=== PATIENT | male | born 1985 | race Caucasian/White ===

== ENCOUNTER 2017-02-26 12:32 | Outpatient (CLI) | payer MEDICAID ==
[2017-03-02 21:28] LABS: MEASLES (RUBEOLA) AB IGG >300.00 AU/mL (())
== END 2017-02-26 12:33 | disposition home or self-care (01) ==
LOC: LAB.N 12:32
PROVIDERS: ATTEND Family Medicine
DX: Z01.84 Encounter for antibody response examination (principal)
CPT/HCPCS: 36415; 86735; 86762; 86765

== ENCOUNTER 2017-02-27 16:25 | Emergency (ER) | payer MEDICAID ==
[2017-02-27 16:35] VITALS: BP 125/82
[2017-02-27] MEDS ORDERED: SULFAMETH/TRIMETH DS 800/160 MG TABLET PO STA (16:53)
--- NOTE | 2017-02-27 16:55 | ED Physician Documentation ---
PD HPI SKIN - Stated complaint Stated Complaint: BUMP ON ARMPIT - Chief complaint Chief Complaint: Wound - History obtained from History obtained from: Patient - History of Present Illness Timing - onset: Other (Had a left axillary abscess a few weeks ago at [facility]. No known history of MRSA. 2- 3 day history of increasingly painful abscess in the right axilla although declines pain medication. No fevers.) Review of Systems Constitutional: denies: Fever, Chills Throat: denies: Dental pain / toothache, Sore throat Cardiac: denies: Chest pain / pressure, Palpitations PD PAST MEDICAL HISTORY - Past Medical History Cardiovascular: None Respiratory: None Neuro: None Endocrine/Autoimmune: None GI: None : None HEENT: None Psych: None Derm: None - Past Surgical History Past Surgical History: Yes General: Other Ortho: Arthroscopic surgery HEENT: Tonsil/Adenoidectomy - Present Medications Home Medications: Ambulatory Orders Medication Instructions Recorded Confirmed Sulfamethoxazole/Trimethoprim 1 each PO BID 7 Days 02/27/17 [Sulfamethoxazole-Tmp Ds Tablet] - Allergies Allergies/Adverse Reactions: Allergies Allergy/AdvReac Type Severity Reaction Status Date / Time No Known Drug Allergies Allergy Verified 04/09/16 20:02 - Social History Does the pt smoke?: Yes Smoking Status: Current every day smoker Does the pt drink ETOH?: No Does the pt have substance abuse?: No - Immunizations Immunizations are current?: Yes - POLST Patient has POLST: No PD ED PE NORMAL - Vitals Vital signs reviewed: Yes - General General: Alert and oriented X 3, No acute distress - Derm Derm: Other (2 cm deep but pointed abcess right axilla) - Neuro Neuro: Alert and oriented X 3, Normal speech - Psych Psych: Normal mood, Normal affect Results - Vitals Vitals: Vital Signs - 24 hr 02/27/17 16:34 Temperature 36.7 C Heart Rate 54 L Respiratory 16 Rate Blood Pressure 125/82 H O2 Saturation 97 Oxygen O2 Source Room air Procedures - Abscess I&D (location) right axilla Preparation: Alcohol, Lidocaine 1% Incision: Incised with scalpel, Purulent drainage, Packed, Culture obtained Other: Pt tolerated well, Dressing applied Departure - Departure Disposition: 01 Home, Self Care Clinical Impression: Abscess Condition: Good Record reviewed to determine appropriate education?: Yes Instructions: ED Abscess IandD Prescriptions: Sulfamethoxazole/Trimethoprim [Sulfamethoxazole-Tmp Ds Tablet] 1 each PO BID 7 Days Comments: Return or see your physician in 2 days for packing removal and recheck. As we discussed we will culture your wound, this results should be done in 48- 72 hours. If an antibiotic change is necessary we will call you. Return if worse in the meantime, especially if you develop increased pain or fevers or cannot keep down the medication. Your blood pressure was elevated today on check in to the emergency department. This does not mean that you have hypertension, it is a common phenomenon to check into the emergency department and have elevated blood pressure. I recommend that you see your primary care physician within the week to have it rechecked when you're feeling better.
[2017-02-27] MEDS ORDERED: SULFAMETH/TRIMETH DS 800/160 MG TABLET PO ONE (16:58)
== END 2017-02-27 17:03 | disposition home or self-care (01) ==
LOC: ED 16:25
DX: L02.412 Cutaneous abscess of left axilla (principal); R03.0 Elevated blood-pressure reading, without diagnosis of hypertension; F17.200 Nicotine dependence, unspecified, uncomplicated
CPT/HCPCS: 10060; 87070; 87077; 87181; 87205; 99283; A9270

== ENCOUNTER 2017-09-11 15:45 | Emergency (ER) | payer MEDICAID ==
[2017-09-11] MEDS ORDERED: SODIUM CHLORIDE 0.9% 1,000 ML IV ONE ×2 (16:04)
[2017-09-11] MEDS ORDERED: ONDANSETRON 4 MG/2 ML VIAL IVP STA (16:14)
--- NOTE | 2017-09-11 16:17 | ED Physician Documentation ---
History of Present Illness - Stated complaint Stated Complaint: VOMITING SINCE - Chief complaint Chief Complaint: Abd Pain - History obtained from History obtained from: Patient - History of Present Illness Timing: How many days ago (3) Pain level max: 0 Pain level now: 0 Improved by: nothing Worsened by: nothing - Additonal information Additional information: Patient is a 32-year-old gentleman who presents to the emergency department with vomiting since Wednesday. This is been intermittent, mainly worse at night. Is nauseated throughout the day and has decreased appetite. Has not had any abdominal pain. No diarrhea or constipation. He does use marijuana daily. He states that he has been smoking marijuana daily for approximately 20 years. No headaches. No focal neurological deficits. No fevers. No recent travel. No recent antibiotics. States he does not use alcohol. He used to drink alcohol. States recently has noticed small streaks of blood in the vomit. Review of Systems Ten Systems: 10 systems reviewed and negative Constitutional: denies: Fever, Chills Nose: denies: Rhinorrhea / runny nose, Congestion Throat: denies: Sore throat Respiratory: denies: Cough GI: reports: Vomiting, Hematemesis. denies: Abdominal Pain, Diarrhea, Bloody / black stool : denies: Dysuria Skin: denies: Rash Musculoskeletal: denies: Neck pain, Back pain Neurologic: denies: Headache PD PAST MEDICAL HISTORY - Past Medical History Cardiovascular: None Respiratory: None Neuro: None Endocrine/Autoimmune: None GI: None : None HEENT: None Psych: None Derm: None - Past Surgical History Past Surgical History: Yes General: Other Ortho: Arthroscopic surgery HEENT: Tonsil/Adenoidectomy - Present Medications Home Medications: Ambulatory Orders Medication Instructions Recorded Confirmed Metoclopramide [Reglan] 10 mg PO Q6H PRN #10 tablet 09/11/17 Omeprazole [PriLOSEC] 20 mg PO DAILY #14 capsule 09/11/17 Ondansetron Odt [Zofran] 4 mg TL Q6H PRN #10 tablet 09/11/17 - Allergies Allergies/Adverse Reactions: Allergies Allergy/AdvReac Type Severity Reaction Status Date / Time No Known Drug Allergies Allergy Verified 09/11/17 15:56 - Social History Does the pt smoke?: Yes Smoking Status: Current every day smoker Does the pt drink ETOH?: No Does the pt have substance abuse?: No - Immunizations Immunizations are current?: Yes - POLST Patient has POLST: No PD ED PE NORMAL - Vitals Vital signs reviewed: Yes - General General: Alert and oriented X 3, No acute distress - HEENT HEENT: Moist mucous membranes - Neck Neck: Supple, no meningeal sign - Cardiac Cardiac: RRR, Strong equal pulses - Respiratory Respiratory: No respiratory distress, Clear bilaterally - Abdomen Abdomen: Soft, Non tender, Non distended - Rectal Rectal: Pt declined - Derm Derm: Warm and dry - Neuro Neuro: Alert and oriented X 3 - Psych Psych: Normal mood, Normal affect Results - Vitals Vitals: Vital Signs - 24 hr 09/11/17 09/11/17 15:52 18:22 Temperature 36.7 C Heart Rate 91 74 Respiratory 16 15 Rate Blood Pressure 127/77 133/65 H O2 Saturation 97 98 Oxygen O2 Source Room air - Labs Labs: Laboratory Tests 09/11/17 09/11/17 09/11/17 16:40 16:40 16:40 WBC 10.5 RBC 4.93 Hgb 14.4 Hct 41.9 L MCV 85.1 MCH 29.3 MCHC 34.4 RDW 13.6 Plt Count 238 MPV 7.6 Neut # 6.1 Lymph # 3.6 H [place] # 0.7 Eos # 0.1 Baso # 0.0 Absolute Nucleated RBC 0.00 Nucleated RBC % 0.0 PT INR APTT Sodium 138 Potassium 3.6 Chloride 101 Carbon Dioxide 27 Anion Gap 10.0 BUN 12 Creatinine 1.0 Estimated GFR (MDRD) 86 L Glucose 89 Calcium 9.4 Total Bilirubin 0.5 AST 17 ALT 24 Alkaline Phosphatase 48 Total Protein 7.3 Albumin 4.4 Globulin 2.9 Albumin/Globulin Ratio 1.5 Lipase 17 L Blood Type O POSITIVE Antibody Screen NEGATIVE 09/11/17 16:40 WBC RBC Hgb Hct MCV MCH MCHC RDW Plt Count MPV Neut # Lymph # [place] # Eos # Baso # Absolute Nucleated RBC Nucleated RBC % PT 13.2 H INR 1.2 APTT 32.0 Sodium Potassium Chloride Carbon Dioxide Anion Gap BUN Creatinine Estimated GFR (MDRD) Glucose Calcium Total Bilirubin AST ALT Alkaline Phosphatase Total Protein Albumin Globulin Albumin/Globulin Ratio Lipase Blood Type Antibody Screen PD MEDICAL DECISION MAKING - ED course Complexity details: reviewed results, re-evaluated patient, considered differential, d/w patient ED course: Patient is a 32-year-old gentleman who presents to the emergency department vomiting for the past few days. Does not have any significant pain. Unclear etiology. He also states that he feels like his food does not always digest fully and empty out of his stomach. Possible gastroparesis? Will trial him on Zofran and Reglan and follow-up closely with his doctor for further evaluation and care. Tolerating p.o. without difficulty here. Patient counseled regarding signs and symptoms for which I believe and urgent re-evaluation would be necessary. Patient with good understanding of and agreement to plan and is comfortable going home at this time This document was made in part using voice recognition software. While efforts are made to proofread this document, sound alike and grammatical errors may occur. Departure - Departure Disposition: 01 Home, Self Care Clinical Impression: Vomiting Qualifiers: Vomiting type: unspecified Vomiting Intractability: non-intractable Nausea presence: with nausea Qualified Code(s): R11.2 - Nausea with vomiting, unspecified Condition: Stable Instructions: ED Nausea Vomiting Follow-Up: your,doctor in 1 week [Other] Prescriptions: Metoclopramide [Reglan] 10 mg PO Q6H PRN #10 tablet PRN Reason: Nausea / Vomiting Omeprazole [PriLOSEC] 20 mg PO DAILY #14 capsule Ondansetron Odt [Zofran] 4 mg TL Q6H PRN #10 tablet PRN Reason: Nausea / Vomiting Comments: The cause of your symptoms is unclear today. Return if you worsen. You should follow-up with your doctor for a possible endoscopy and possible gastric emptying study. You may have gastroparesis or may be developing ulcers. Discharge Date/Time: 09/11/17 18:22
[2017-09-11 17:09] LABS: BASOPHILS % (AUTO) 0.3 %; EOSINOPHILS # (AUTO) 0.1 10^3/uL (0.0-0.7); EOSINOPHILS % (AUTO) 0.5 %; HCT - HEMATOCRIT 41.9 % (42.0-52.0); HGB - HEMOGLOBIN 14.4 g/dL (14.0-18.0); LYMPHOCYTES # (AUTO) 3.6 10^3/uL (1.5-3.5); LYMPHOCYTES % (AUTO) 34.4 %; MEAN CORPUSCULAR HEMOGLOBIN 29.3 pg (27.0-31.0); MEAN CORPUSCULAR HGB CONC 34.4 g/dL (32.0-36.0); MEAN CORPUSCULAR VOLUME 85.1 fL (80.0-94.0); MEAN PLATELET VOLUME 7.6 fL (7.4-11.4); MONOCYTES # (AUTO) 0.7 10^3/uL (0.0-1.0); NEUTROPHILS # (AUTO) 6.1 10^3/uL (1.5-6.6); NEUTROPHILS % (AUTO) 57.8 %; RED BLOOD COUNT 4.93 10^6/uL (4.70-6.10); RED CELL DISTRIBUTION WIDTH 13.6 % (12.0-15.0); UNCORRECTED WHITE BLOOD COUNT 10.5 x10^3/uL; WHITE BLOOD COUNT 10.5 x10^3/uL (4.8-10.8)
[2017-09-11 17:19] LABS: INR 1.2 (0.8-1.2); PT - PROTHROMBIN TIME 13.2 secs (9.9-12.6)
[2017-09-11 17:25] LABS: ALBUMIN/GLOBULIN RATIO 1.5 (1.0-2.2); BILIRUBIN,TOTAL 0.5 mg/dL (0.2-1.0); CALCIUM 9.4 mg/dL (8.5-10.3); POTASSIUM 3.6 mmol/L (3.5-5.0); TOTAL PROTEIN 7.3 g/dL (6.7-8.2)
[2017-09-11 18:24] VITALS: BP 133/65
== END 2017-09-11 18:22 | disposition home or self-care (01) ==
LOC: ED 15:45
DX: R11.2 Nausea with vomiting, unspecified (principal); F17.200 Nicotine dependence, unspecified, uncomplicated
CPT/HCPCS: 36415; 80053; 83690; 85025; 85610; 85730; 86850; 86900; 86901; 96361; 96374; 99283

== ENCOUNTER 2019-02-21 08:45 | Emergency (ER) | payer SELFPAY ==
[2019-02-21] MEDS ORDERED: CHERRY SYRUP 10 ML UDC PO ONE (10:10)
[2019-02-21] MEDS ORDERED: DEXAMETHASONE 10 MG/ML VIAL PO STA (10:10)
--- NOTE | 2019-02-21 10:19 | XRAY Report ---
Reason: R shoulder pain Procedure Date: 02/21/2019 Accession Number: [id number] / [id number] Procedure: XR - Shoulder 3 View RT CPT Code: FULL RESULT: EXAM: RIGHT SHOULDER RADIOGRAPHY EXAM DATE: 02/21/2019 10:00 AM. CLINICAL HISTORY: R shoulder pain. COMPARISON: None. TECHNIQUE: 3 views. FINDINGS: Bones: No fracture or bone lesion. Joints: The glenohumeral and acromioclavicular joints are anatomically aligned. Minor acromioclavicular joint degenerative change. Soft tissues: The included hemithorax is unremarkable. No soft tissue swelling. IMPRESSION: Minor right shoulder degenerative change without superimposed acute findings. RADIA
--- NOTE | 2019-02-21 10:20 | ED Physician Documentation ---
PD HPI UPPER EXT INJURY - Stated complaint Stated Complaint: RT SHLDR PX - Chief complaint Chief Complaint: Ext Problem - History obtained from History obtained from: Patient - History of Present Illness Location: Right, Shoulder Type of injury: Other (over use) Where injury occurred: Home Timing - onset: How many days ago (2) Timing - duration: Days (2) Timing - details: Abrupt onset, Still present Improved by: Rest, Immobilization Worsened by: Moving, Palpating Associated symptoms: No: Weakness, Numbness, Tingling, Swelling Contributing factors: No: Anticoagulated Similar symptoms before: No diagnosis Recently seen: Not recently seen - Additonal information Additional information: 33-year-old male with a remote injury to his right shoulder was helping his mother move over the weekend and he has developed increased pain in his right shoulder and with any movement he is having pain. Review of Systems Constitutional: denies: Fever, Chills Eyes: denies: Decreased vision Ears: denies: Ear pain Nose: denies: Rhinorrhea / runny nose, Congestion Throat: denies: Sore throat Cardiac: denies: Chest pain / pressure Respiratory: denies: Dyspnea, Cough GI: denies: Vomiting : denies: Dysuria PD PAST MEDICAL HISTORY - Past Medical History Cardiovascular: None Respiratory: None Endocrine/Autoimmune: None GI: None : None HEENT: None Psych: None Derm: None - Past Surgical History Past Surgical History: Yes General: Other Ortho: Arthroscopic surgery HEENT: Tonsil/Adenoidectomy - Present Medications Home Medications: Ambulatory Orders Medication Instructions Recorded Confirmed Hydrocodone/Acetaminophen 1 - 2 each PO Q6H PRN #14 tablet 02/21/19 [Hydrocodon-Acetaminophen 5-325] - Allergies Allergies/Adverse Reactions: Allergies Allergy/AdvReac Type Severity Reaction Status Date / Time No Known Drug Allergies Allergy Verified 02/21/19 08:54 - Social History Does the pt smoke?: Yes Smoking Status: Current every day smoker Does the pt drink ETOH?: No Does the pt have substance abuse?: No - Immunizations Immunizations are current?: Yes - POLST Patient has POLST: No PD ED PE NORMAL - Vitals Vital signs reviewed: Yes (hypertensive ) - General General: Alert and oriented X 3, No acute distress, Well developed/nourished - HEENT HEENT: Atraumatic, PERRL, EOMI - Neck Neck: Supple, no meningeal sign, No bony TTP - Respiratory Respiratory: No respiratory distress - Back Back: No CVA TTP, No spinal TTP - Derm Derm: Normal color, Warm and dry, No rash - Extremities Extremities: No deformity, No edema, Other (no significant tenderness to the shoulder he is able to hold the shoulder in abduction and a full ROM is able with pain. distal n/v is intact. ) - Neuro Neuro: Alert and oriented X 3, can doffer 2-12 intact, No motor deficit, No sensory deficit, Normal speech Eye Opening: Spontaneous Motor: Obeys Commands Verbal: Oriented GCS Score: 15 - Psych Psych: Normal mood, Normal affect Results - Vitals Vitals: Vital Signs - 24 hr 02/21/19 08:51 Temperature 36.6 C Heart Rate 83 Respiratory 20 Rate Blood Pressure 127/89 H O2 Saturation 98 Oxygen O2 Source Room air - Rads (name of study) shoulder Radiology: Prelim report reviewed (Impression: Minor right shoulder degenerative change without superimposed acute findings.), EMP read indepedently, See rad report PD MEDICAL DECISION MAKING - ED course Complexity details: considered differential, d/w patient ED course: 33-year-old male with what sounds like acute bursitis is administered dexamethasone 10 mg orally we will place him into a sling. Departure - Departure Disposition: 01 Home, Self Care Clinical Impression: Bursitis Qualifiers: Bursitis location: shoulder Laterality: right Qualified Code(s): M75.51 - Bursitis of right shoulder Condition: Stable Instructions: ED Bursitis Follow-Up: [facility] [Provider Group] Prescriptions: Hydrocodone/Acetaminophen [Hydrocodon-Acetaminophen 5-325] 1 - 2 each PO Q6H PRN #14 tablet PRN Reason: pain Forms: Activity restrictions
[2019-02-21 10:49] VITALS: BP 135/88
== END 2019-02-21 10:49 | disposition home or self-care (01) ==
LOC: ED 08:45
DX: M75.51 Bursitis of right shoulder (principal); F17.200 Nicotine dependence, unspecified, uncomplicated
CPT/HCPCS: 99283

== ENCOUNTER 2021-12-23 06:00 | Outpatient (CLI) | payer OTHER ==
--- NOTE | 2021-12-23 10:08 | XRAY Report ---
PROCEDURE: Knee 3 View RT INDICATIONS: RIGHT KNEE PAIN TECHNIQUE: 3 views of the right knee(s) were acquired. COMPARISON: None. FINDINGS: Bones: No fractures or dislocations. No suspicious bony lesions. Mild tricompartmental periarticul ar osteophyte formation. Soft tissues: No joint effusion. No suspicious soft tissue calcifications. IMPRESSION: Osteoarthritis. No acute fracture. No osseous lesion. If symptoms and/or clinical suspic ion for pathology continue, further assessment with repeat plain films, or advanced imaging (e.g., CT , MRI, or bone scan) is recommended for further assessment. Reviewed by: Slime Stevenson MD on 12/23/2021 10:07 AM PDT Approved by: Slime Stevenson MD on 12/23/2021 10:07 AM PDT Station ID: [id number]
== END 2021-12-23 23:59 | disposition home or self-care (01) ==
LOC: DI.WOS 06:00
PROVIDERS: ATTEND Physician Assistant
DX: M17.11 Unilateral primary osteoarthritis, right knee (principal)

== ENCOUNTER 2024-02-27 11:47 | Emergency (ER) | payer OTHER ==
--- NOTE | 2024-02-27 12:47 | ED Physician Documentation ---
PD HPI HEENT - Stated complaint Stated Complaint: BOTH EARS-PX,RED - Chief complaint Chief Complaint: Heent - History obtained from History obtained from: Patient - History of Present Illness Timing - onset: How many weeks ago (1-2 weeks of fullness and less hearing in ears, tried to remove wax but minimal out. Got ear janitor cleaner from store that has small camera, and he noted redness of the left ear in particular.) Timing - duration: Days (having the ear pain in paritcular has just been increaseing few days.) Timing - details: Gradual onset, Still present Location: Right ear, Left ear Associated symptoms: Congestion. No: Fever, Facial swelling, Headache, Cough Similar symptoms before: Diagnosis (has just been was buildup in the past. Not the pain like currently.) Review of Systems Constitutional: denies: Fever, Chills Ears: reports: Loss of hearing (decreased both ears.), Ear pain (mostly left ear) Nose: reports: Rhinorrhea / runny nose Throat: denies: Sore throat Respiratory: denies: Cough PD PAST MEDICAL HISTORY - Past Medical History Past Medical History: Yes Cardiovascular: None Respiratory: None Neuro: None Endocrine/Autoimmune: None GI: None : None HEENT: None Psych: None Musculoskeletal: Chronic back pain Derm: None - Past Surgical History Past Surgical History: Yes General: Other Ortho: Arthroscopic surgery HEENT: Tonsil/Adenoidectomy - Present Medications Home Medications: Ambulatory Orders Medication Instructions Recorded Confirmed Amoxicillin 500 mg PO TID #21 cap 02/27/24 Cetirizine [ZyrTEC] 10 mg PO BID #15 tablet 02/27/24 Neomycin/Polymyx/Hc Otic Drops 4 drops LEFTEAR TID 6 Days #10 ml 02/27/24 [Cortisporin Ear Susp] dexAMETHasone [Decadron] 4 mg PO DAILY #5 tablet 02/27/24 - Allergies Allergies/Adverse Reactions: Allergies Allergy/AdvReac Type Severity Reaction Status Date / Time No Known Drug Allergies Allergy Verified 02/27/24 12:21 - Social History Does the pt smoke?: Yes Smoking Status: Current every day smoker Does the pt drink ETOH?: Yes ETOH Use: Beer, Liquor Does the pt have substance abuse?: Yes Substance Use and Type: Marijuana - Immunizations Immunizations are current?: Yes - POLST Patient has POLST: No PD ED PE NORMAL - Vitals Vital signs reviewed: Yes - General General: Alert and oriented X 3, No acute distress, Well developed/nourished - HEENT HEENT: Moist mucous membranes, Pharynx benign. No: Ears normal (right with some fluid behind TM. Canal is normal and no wax. Left with also no wax but has redness and swelling of canal near TM and redness/bulging of the TM itself. No perforation nor drainage. ) Results - Vitals Vitals: Vital Signs - 24 hr 02/27/24 02/27/24 12:21 13:18 Temperature 36.7 C 36.6 C Heart Rate 77 72 Respiratory 18 18 Rate Blood Pressure 163/92 H 140/88 H O2 Saturation 99 100 Oxygen O2 Source Room air PD Medical Decision Making - ED course Complexity details: considered differential (no wax. canals clear with some canal infection medially on left but also OM on left. ), d/w patient Departure - Departure Disposition: 01 Home, Self Care Clinical Impression: Otitis media Qualifiers: Otitis media type: suppurative Chronicity: acute Laterality: left Recurrence: non-recurrent Spontaneous tympanic membrane rupture: without spontaneous rupture Qualified Code(s): H66.002 - Acute suppurative otitis media without spontaneous rupture of ear drum, left ear Otitis externa Qualifiers: Otitis externa type: unspecified type Chronicity: acute Laterality: left Qualified Code(s): H60.502 - Unspecified acute noninfective otitis externa, left ear Condition: Stable Record reviewed to determine appropriate education?: Yes Instructions: ED Otitis Media Acute Adult Prescriptions: Amoxicillin 500 mg PO TID #21 cap Neomycin/Polymyx/Hc Otic Drops [Cortisporin Ear Susp] 4 drops LEFTEAR TID 6 Days #10 ml dexAMETHasone [Decadron] 4 mg PO DAILY #5 tablet Cetirizine [ZyrTEC] 10 mg PO BID #15 tablet Comments: The right ear canal is normal. The eardrum appears pressured from fluid but does not look infected. However on the left side the eardrum and around it does have redness and swelling as you had commented. There is some redness and swelling through the canal but primarily looks more an infection to the middle ear. I would use a combination of amoxicillin oral antibiotic as well as a combined anti-inflammatory/antibiotic eardrops on the left side. It does sound like there is some fluid pressure buildup through the middle ear and sinuses as well. Use a combination of cetirizine antihistamine twice daily for the next week and dexamethasone steroid for inflammation. This should help promote drainage and relieve the infection sooner as well. I sent your prescriptions to your preferred pharmacy. Tylenol or ibuprofen if needed for pains. I would anticipate improvement over the next 2 to 3 days and resolution over 3 to 5 days. Forms: PCP List Discharge Date/Time: 02/27/24 13:18
[2024-02-27] MEDS: AMOXICILLIN 250 MG CAPSULE PO STA (13:15)
[2024-02-27] MEDS: dexAMETHasone 4 MG TABLET PO STA (13:15)
[2024-02-27 13:21] VITALS: BP 140/88; O2SAT 100
== END 2024-02-27 13:18 | disposition home or self-care (01) ==
LOC: ED 11:47
DX: H66.002 Acute suppurative otitis media without spontaneous rupture of ear drum, left ear (principal); H60.92 Unspecified otitis externa, left ear; Z79.899 Other long term (current) drug therapy; F17.200 Nicotine dependence, unspecified, uncomplicated
CPT/HCPCS: 99283; A9270; J8540